=== PATIENT | male | born 1985 | race Caucasian/White ===

== ENCOUNTER 2019-10-29 10:10 | Emergency (ER) | payer OTHER, SELFPAY ==
[2019-10-29 10:24] VITALS: BP 161/95; PULSE 89; RESP 20; TEMP 37.2; O2SAT 99
--- NOTE | 2019-10-29 10:43 | ED.ABDPAIN ---
HPI - Abdominal Pain General Chief Complaint: Abdominal Pain Stated Complaint: Diverticuli flare up Time Seen by Provider: 10/29/19 10:43 Source: patient and family History of Present Illness HPI narrative: Patient presents with left lower quadrant pain. Patient states it is intermittent and started last night. Patient thinks he has a history of diverticulitis but is unsure. Patient denies any constipation denies any loose or liquid stools. Patient denies any blood or mucus in his stools. Patient has not taken anything for pain or discomfort. Patient states he is having no symptoms at this time. MD elicited complaint: abdominal pain Related Data Home Medications Medication Instructions Recorded Confirmed No Home Medications 10/29/19 10/29/19 Allergies Allergy/AdvReac Type Severity Reaction Status Date / Time No Known Allergies Allergy Verified 10/29/19 10:36 Review of Systems Review of Systems: Narrative: CONSTITUTIONAL: Denies fever, chills, or sweats. EYES: Denies visual changes, redness, or discharge. ENT: Denies rhinorrhea, congestion, sore throat, or otalgia. CARDIOVASCULAR: Denies chest pain, palpitations, or edema. RESPIRATORY: Denies cough or dyspnea. GASTROINTESTINAL: Denies abdominal pain, nausea, vomiting, or diarrhea. GENITOURINARY: Denies dysuria or hematuria. SKIN: Denies rash or itching. MUSCULOSKELETAL: Denies back pain, joint pain, or myalgia. NEUROLOGIC: Denies headache, numbness, or weakness. PSYCHIATRIC: Denies anxiety or depression. All systems reviewed & are unremarkable except as noted in HPI and below PMFSH Comments At time of signature, agree with nursing past medical, surgical, social and family history. There is no relevant family history pertinent to the presenting complaint Exam Narrative: Exam Narrative: GENERAL: Well-appearing, well-nourished, and in no acute distress. HEAD: Normocephalic, atraumatic. EYES: PERRLA and EOMI. ENT: Nares clear, no rhinorrhea or epistaxis. Mucous membranes moist. NECK: Supple. CHEST: Clear to auscultation. No respiratory distress. HEART: Regular rate and rhythm. No murmur heard. Normal peripheral pulses. ABDOMEN: Soft, nontender, nondistended, normal active bowel sounds. EXTREMITIES: Normal range of motion. No edema. SKIN: Warm, dry, no rash. NEURO: No focal deficits. Alert and oriented x3. Divine Coma Scale Eye Opening: Spontaneous 4 [place] Coma Scale Motor: Obeys Commands 6 [place] Coma Scale Verbal: Oriented 5 [place] Coma Scale Total 15 Course Vital Signs Vital signs: Vital Signs Temperature 37.2 C 10/29/19 10:24 Pulse Rate 89 10/29/19 10:24 Respiratory Rate 10/29/19 10:24 Blood Pressure 161/95 H 10/29/19 10:24 Pulse Oximetry 99 10/29/19 10:24 Temperature 37.2 C 10/29/19 10:24 Pulse Rate 89 10/29/19 10:24 Respiratory Rate 20 10/29/19 10:24 Blood Pressure 161/95 H 10/29/19 10:24 Pulse Oximetry 99 10/29/19 10:24 Addressed elevated BP today. Today's blood pressure higher than recommended range. Discussed importance of follow -up with PCP and possible extermination supervisor effects/cardiovascular events related to HTN. Currently patient denies headache, dizziness, vision changes, CP or shortness of breath. Discussed with patient need to follow-up with his primary care provider for further evaluation and treatment. Discussed negative exam at this express care visit. Patient states he has no diarrhea no constipation. Patient denies any further testing at this express care visit patient does not wish to go the ER at this time. Patient states he will follow-up with his primary care provider as soon as possible. Discussed red flags and when to go to ER. MDM - Abdominal Pain Differential Diagnosis Differential diagnosis: Likely abdominal pain, acute appendicitis, calculus of kidney, constipation, diverticulitis, endometriosis, gastroenteritis, pancreatitis and small bowel obstruction Critical Care Time Critical C
== END 2019-10-29 10:56 | disposition home or self-care (01) ==
PROVIDERS: Emergency Provider Nurse Practitioner Family
DX: R10.32 Left lower quadrant pain (principal)
CPT/HCPCS: 99211; G0463